=== PATIENT | male | born 2000 | race Caucasian/White ===

== ENCOUNTER 2021-01-31 13:19 | Outpatient (CLI) | payer OTHER, SELFPAY ==
[2021-01-31 13:44] VITALS: BP 129/77; PULSE 94; RESP 18; TEMP 36.7; O2SAT 99; BMI 22.1
[2021-01-31 14:08] VITALS: BP 115/69; PULSE 68; RESP 18; O2SAT 98
[2021-01-31 15:07] VITALS: BP 114/63; PULSE 78; RESP 18; TEMP 36.9; O2SAT 99
== END 2021-01-31 13:20 | disposition home or self-care (01) ==
LOC: OPS 13:26
PROVIDERS: PCP Internal Medicine; Visit Provider Internal Medicine
DX: U07.1 COVID-19 (principal)
CPT/HCPCS: 96365